=== PATIENT | male | born 2000 | race African-American/Black ===

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

== ENCOUNTER 2022-11-26 01:36 | Emergency (ER) | payer OTHER ==
[2022-11-26 01:47] VITALS: BP 150/80; PULSE 77; RESP 18; TEMP 98.3; BMI 23.6
[2022-11-26 03:40] LABS: HEMATOCRIT 48.3 % (35.4-49); HEMOGLOBIN 15.8 GM/dL (11.7-16.9); MCH 23.7 pg (25.7-33.7); MCHC 32.7 g/dl (32.0-35.9); MEAN CELL VOLUME 72.3 fl (80-96); MEAN PLT VOLUME 7.9 fl (7.5-11.1); PLATELET COUNT 194 10^3/uL (134-434); RBC 6.68 M/mm3 (4.00-5.60); RDW 15.6 % (11.9-15.9); WHITE BLOOD COUNT 7.4 K/mm3 (4.0-10.0)
[2022-11-26 04:01] LABS: POTASSIUM 3.7 mmol/L (3.5-5.1)
[2022-11-26 04:03] LABS: ALBUMIN 3.8 g/dl (3.4-5.0); BLOOD UREA NITROGEN 11.8 mg/dL (7-18)
[2022-11-26 04:06] LABS: CREATININE 1.2 mg/dL (0.55-1.3)
[2022-11-26 04:08] LABS: BILIRUBIN,TOTAL 0.4 mg/dL (0.2-1); TOT PROT 8.7 g/dl (6.4-8.2)
[2022-11-26 04:59] LABS: HIV INTERPRETATION NEGATIVE (NEGATIVE)
[2022-11-26] MEDS ORDERED: PYRIDOXINE HCL 100 MG/1 ML VIAL IM ONE (05:37)
== END 2022-11-26 05:58 | disposition home or self-care (01) ==
LOC: JER 01:36
PROC: 3E023GC Introduction of Other Therapeutic Substance into Muscle, Percutaneous Approach (ICD-10-PCS; principal; 2022-11-26)
DX: R22.33 Localized swelling, mass and lump, upper limb, bilateral (principal); R21 Rash and other nonspecific skin eruption; I73.81 Erythromelalgia; M79.671 Pain in right foot; M79.672 Pain in left foot; N49.2 Inflammatory disorders of scrotum
CPT/HCPCS: 36415; 80053; 82607; 82728; 82746; 83540; 83550; 83735; 85027; 86780; 87389; 87491; 87591; 87661; 99284-25

== ENCOUNTER 2023-10-15 17:14 | Emergency (ER) | payer OTHER ==
[2023-10-15 17:31] VITALS: BMI 20.7
[2023-10-15] MEDS ORDERED: ACETAMINOPHEN INJECTION 100 ML ONE (18:52)
[2023-10-15 19:03] LABS: BASO % 0.2 % (0-2.0); EOS % 0.2 % (0-4.5); HEMATOCRIT 43.5 % (35.4-49); HEMOGLOBIN 13.8 GM/dL (11.7-16.9); LYMPH % 15.5 % (8-40); MCH 24.1 pg (25.7-33.7); MCHC 31.8 g/dl (32.0-35.9); MEAN CELL VOLUME 75.9 fl (80-96); MEAN PLT VOLUME 8.7 fl (7.5-11.1); MONO % 10.3 % (3.8-10.2); NEUT % 73.8 % (42.8-82.8); PLATELET COUNT 230 10^3/uL (134-434); RBC 5.73 M/mm3 (4.00-5.60); RDW 15.6 % (11.9-15.9); WHITE BLOOD COUNT 3.7 K/mm3 (4.0-10.0)
[2023-10-15] MEDS: SODIUM CHLORIDE 0.9% 1000 ML INFUS.BAG IV STA (19:14)
[2023-10-15] MEDS: ACETAMINOPHEN 1000 MG/100 ML BAG IVPB ONE (19:15)
[2023-10-15 19:43] LABS: POTASSIUM 4.1 mmol/L (3.5-5.1)
[2023-10-15 19:46] LABS: CALCIUM 8.3 mg/dL (8.5-10.1)
[2023-10-15 19:47] LABS: BLOOD UREA NITROGEN 6.7 mg/dL (7-18)
[2023-10-15 19:50] LABS: CREATININE 0.9 mg/dL (0.55-1.3); PHOSPHOROUS 3.9 mg/dL (2.5-4.9)
[2023-10-15 19:51] LABS: BILIRUBIN,TOTAL 0.4 mg/dL (0.2-1); TOT PROT 8.5 g/dl (6.4-8.2)
[2023-10-15 20:29] VITALS: BP 107/69; PULSE 80; RESP 19; TEMP 99.5
== END 2023-10-15 20:42 | disposition home or self-care (01) ==
LOC: JER 17:14
PROC: 3E033NZ Introduction of Analgesics, Hypnotics, Sedatives into Peripheral Vein, Percutaneous Approach (ICD-10-PCS; principal; 2023-10-15)
DX: I95.9 Hypotension, unspecified (principal); E86.0 Dehydration; R50.9 Fever, unspecified; R53.83 Other fatigue; R42 Dizziness and giddiness; M79.10 Myalgia, unspecified site; R63.0 Anorexia; Z20.822 Contact with and (suspected) exposure to COVID-19
CPT/HCPCS: 0241U-QW; 36415; 71046-TC-FY; 80053; 84100; 85025; 93005; 93010; 93308; 99285-25; J0131

== ENCOUNTER 2023-11-28 09:44 | Inpatient (IN) | payer OTHER ==
[2023-11-28] MEDS ORDERED: ACETAMINOPHEN INJECTION 100 ML ONE (10:14)
[2023-11-28] MEDS: SODIUM CHLORIDE 0.9% 1000 ML INFUS.BAG IV STA (10:21)
[2023-11-28] MEDS: ACETAMINOPHEN 1000 MG/100 ML BAG IVPB ONE (10:21)
[2023-11-28 11:04] LABS: BASO % 0.4 % (0-2.0); HEMOGLOBIN 11.2 GM/dL (11.7-16.9); MCH 23.3 pg (25.7-33.7); MCHC 31.8 g/dl (32.0-35.9); MEAN CELL VOLUME 73.3 fl (80-96); MEAN PLT VOLUME 8.6 fl (7.5-11.1); MONO % 5.9 % (3.8-10.2); NEUT % 85.7 % (42.8-82.8); PLATELET COUNT 163 10^3/uL (134-434); RBC 4.78 M/mm3 (4.00-5.60); RDW 14.7 % (11.9-15.9)
[2023-11-28 11:08] LABS: VENOUS BASE EXCESS 0.4 mmol/L (-2-2); VENOUS PCO2 47.9 mmHg (38-52); VENOUS PH 7.358 (7.310-7.410)
[2023-11-28 11:11] LABS: INR 1.04 (0.83-1.09); PROTHROMBIN TIME (PATIENT) 11.7 SEC (9.7-13.0)
[2023-11-28 11:13] LABS: ACTIVATED PTT 34.4 SECONDS (25.2-36.5)
[2023-11-28 11:35] LABS: POTASSIUM 4.1 mmol/L (3.5-5.1)
[2023-11-28 11:39] LABS: CALCIUM 7.8 mg/dL (8.5-10.1)
[2023-11-28 11:40] LABS: ALBUMIN 2.4 g/dl (3.4-5.0); BLOOD UREA NITROGEN 11.6 mg/dL (7-18)
[2023-11-28 11:43] LABS: CREATININE 0.7 mg/dL (0.55-1.3)
[2023-11-28 11:45] LABS: BILIRUBIN,TOTAL 1.3 mg/dL (0.2-1); TOT PROT 7.3 g/dl (6.4-8.2)
[2023-11-28] MEDS ORDERED: CEFTRIAXONE 1 GM/50 ML BAG ONE (12:05)
[2023-11-28] MEDS: CEFTRIAXONE 1,000 MG in DEXTROSE 5%-WATER - 50 ML IVPB ONE (12:06)
[2023-11-28 12:08] LABS: PH,URINE 6.5 (5.0-8.0); URINE APPEARANCE CLEAR; URINE BILIRUBIN NEGATIVE (NEGATIVE); URINE COLOR YELLOW; URINE GLUCOSE (UA) NEGATIVE (NEGATIVE); URINE KETONE NEGATIVE (NEGATIVE); URINE LEUK ESTERASE NEGATIVE (NEGATIVE); URINE NITRITE NEGATIVE (NEGATIVE); URINE PROTEIN 1+ (NEGATIVE); URINE UROBILINOGEN 0.2 mg/dL (0.2-1.0)
[2023-11-28 13:09] LABS: SYPHILIS W/ RPR CONF NON-REACTIVE (NONREACTIVE)
[2023-11-28 13:13] LABS: URINE RBC 17.8 /uL (0-23.9); URINE WBC 4.3 /uL (0-25.8)
[2023-11-28 13:14] LABS: EPI CELLS 1.3 /uL (0-25.1); HYALINE CASTS 0.14 /uL (0-3.1); URINE BACTERIA 0.9 /uL (0-1359)
[2023-11-28] MEDS ORDERED: VANCOMYCIN 1 GRAM (PRE-DOCKED) 1,000 MG/250 ML BAG IVPB ONE (13:22)
[2023-11-28] MEDS: VANCOMYCIN 1,000 MG in DEXTROSE 5%-WATER - 250 ML IVPB ONE (13:23)
[2023-11-28 13:39] LABS: HIV INTERPRETATION NEGATIVE (NEGATIVE)
[2023-11-28] MEDS ORDERED: THIAMINE HCL 200 MG/2 ML VIAL ONE (15:20)
[2023-11-28] MEDS: THIAMINE HCL 200 MG/2 ML VIAL IVPB ONE (15:25)
[2023-11-28] MEDS: DEXTROSE 5%-LACTATED RINGERS 1,000 ML IV SCH (17:12)
[2023-11-28] MEDS: MELATONIN 5 MG TABLETS PO ONE (20:32)
[2023-11-28 21:27] VITALS: BMI 17.2
[2023-11-28] MEDS: guaiFENesin 200 MG/10 ML 10 ML UNIT-DOSE CUPS PO PRN (21:54)
[2023-11-29 09:12] LABS: BASO % 0.3 % (0-2.0); HEMATOCRIT 28.1 % (35.4-49); LYMPH % 15.5 % (8-40); MCH 23.4 pg (25.7-33.7); MEAN CELL VOLUME 73.1 fl (80-96); MEAN PLT VOLUME 8.1 fl (7.5-11.1); MONO % 10.7 % (3.8-10.2); NEUT % 73.5 % (42.8-82.8); PLATELET COUNT 148 10^3/uL (134-434); RBC 3.84 M/mm3 (4.00-5.60); RDW 14.8 % (11.9-15.9); WHITE BLOOD COUNT 2.4 K/mm3 (4.0-10.0)
[2023-11-29] MEDS: ENOXAPARIN NA (PORCINE) 40 MG/0.4 ML DISP.SYRIN SQ SCH (09:42)
[2023-11-29 09:46] LABS: POTASSIUM 3.4 mmol/L (3.5-5.1)
[2023-11-29 10:05] LABS: CALCIUM 7.5 mg/dL (8.5-10.1)
[2023-11-29 10:06] LABS: BLOOD UREA NITROGEN 6.8 mg/dL (7-18)
[2023-11-29 10:07] LABS: CREATININE 0.6 mg/dL (0.55-1.3)
[2023-11-29 10:09] LABS: BILIRUBIN,TOTAL 0.5 mg/dL (0.2-1)
[2023-11-29 10:12] LABS: TOT PROT 5.7 g/dl (6.4-8.2)
[2023-11-29 10:18] LABS: ALBUMIN 1.8 g/dl (3.4-5.0)
[2023-11-29] MEDS: DEXTROSE 5%-0.45% SALINE 1,000 ML IV SCH (13:13)
[2023-11-29] MEDS: POTASSIUM CHLORIDE ORAL LIQUID 20 MEQ/15 ML PO ONE (13:13)
[2023-11-29 15:15] LABS: COCAINE, UR NEGATIVE (NEGATIVE); METHADONE, UR NEGATIVE (NEGATIVE)
[2023-11-29 15:16] LABS: OPIATES, URI NEGATIVE (NEGATIVE); PHENCYCLIDINE,URINE NEGATIVE (NEGATIVE); URINE AMPHETAMINES NEGATIVE (NEGATIVE)
[2023-11-29 15:20] LABS: URINE BARBITURATES NEGATIVE (NEGATIVE); URINE BENZODIAZEPINES NEGATIVE (NEGATIVE)
[2023-11-29 17:36] LABS: RETICULOCYTES 0.28 % (0.5-1.5)
[2023-11-29] MEDS: ACETAMINOPHEN 1000 MG/100 ML BAG IVPB ONE (18:14)
[2023-11-29] MEDS: LORazepam 2 MG/ML SDV VIAL IVPUSH ONE (18:26)
[2023-11-29] MEDS: SODIUM CHLORIDE 1,000 ML IV SCH (19:24)
[2023-11-29] MEDS: THIAMINE HCL 200 MG/2 ML VIAL IVPB ONE (19:24)
[2023-11-29] MEDS: MIRTAZAPINE 15 MG TABLET (FP) PO SCH (21:32)
[2023-11-29 22:21] LABS: CALCIUM 7.3 mg/dL (8.5-10.1); MAGNESIUM 1.4 mg/dL (1.8-2.4)
[2023-11-29] MEDS: THIAMINE HCL 200 MG/2 ML VIAL IVPB SCH (22:53)
[2023-11-29] MEDS: MELATONIN 5 MG TABLETS PO ONE (22:53)
[2023-11-29] MEDS: SENNOSIDES 8.6MG TABLET (FP) PO ONE (22:54)
[2023-11-30 10:44] LABS: BASO % 1.1 % (0-2.0); HEMATOCRIT 27.7 % (35.4-49); HEMOGLOBIN 8.6 GM/dL (11.7-16.9); LYMPH % 20.4 % (8-40); MCH 23.1 pg (25.7-33.7); MCHC 31.2 g/dl (32.0-35.9); MEAN CELL VOLUME 74.2 fl (80-96); MEAN PLT VOLUME 8.6 fl (7.5-11.1); NEUT % 65.5 % (42.8-82.8); PLATELET COUNT 160 10^3/uL (134-434); RBC 3.73 M/mm3 (4.00-5.60)
[2023-11-30 10:55] LABS: WHITE BLOOD COUNT 1.9 K/mm3 (4.0-10.0)
[2023-11-30 11:06] LABS: CHLORIDE 108 mmol/L (98-107); POTASSIUM 3.4 mmol/L (3.5-5.1); SODIUM 139 mmol/L (136-145)
[2023-11-30 11:07] LABS: CALCIUM 7.7 mg/dL (8.5-10.1)
[2023-11-30 11:08] LABS: ALBUMIN 1.8 g/dl (3.4-5.0); ANION GAP 7 mmol/L (4-13); BLOOD UREA NITROGEN 6.4 mg/dL (7-18); CO2 25 mmol/L (21-32); GLUCOSE,RANDOM 73 mg/dL (74-106)
[2023-11-30 11:11] LABS: CREATININE 0.5 mg/dL (0.55-1.3); SGOT/AST 415 U/L (15-37); SGPT/ALT 217 U/L (13-61)
[2023-11-30 11:12] LABS: BILIRUBIN,TOTAL 0.6 mg/dL (0.2-1); LDH 969 U/L (87-246); TOT PROT 5.6 g/dl (6.4-8.2)
[2023-11-30 11:14] LABS: ALK PHOS 89 U/L (45-117)
[2023-11-30 11:27] LABS: IRON SERUM 47 ug/dL (50-175)
[2023-11-30 12:10] LABS: ANISOCYTOSIS 0; MACROCYTOSIS 0; PLATELET ESTIMATE ADEQUATE
[2023-11-30] MEDS: ALPRAZolam 0.25 MG TABLET PO PRN (13:09)
[2023-11-30] MEDS: POTASSIUM CHLORIDE ORAL LIQUID 20 MEQ/15 ML PO ONE (15:40)
[2023-11-30] MEDS: LORazepam 2 MG/ML SDV VIAL IVPUSH PRN (18:52)
[2023-12-01 10:48] LABS: INR 1.08 (0.83-1.09); PROTHROMBIN TIME (PATIENT) 12.4 SEC (9.7-13.0)
[2023-12-01 10:50] LABS: HEMATOCRIT 28.4 % (35.4-49); MCH 23.4 pg (25.7-33.7); MCHC 31.7 g/dl (32.0-35.9); MEAN CELL VOLUME 73.8 fl (80-96); MEAN PLT VOLUME 8.1 fl (7.5-11.1); PLATELET COUNT 161 10^3/uL (134-434); RBC 3.85 M/mm3 (4.00-5.60); RDW 15.4 % (11.9-15.9)
[2023-12-01 11:00] LABS: WHITE BLOOD COUNT 1.6 K/mm3 (4.0-10.0)
[2023-12-01 11:04] LABS: POTASSIUM 3.3 mmol/L (3.5-5.1)
[2023-12-01 11:07] LABS: ALBUMIN 1.8 g/dl (3.4-5.0); BLOOD UREA NITROGEN 6.2 mg/dL (7-18); CALCIUM 7.5 mg/dL (8.5-10.1)
[2023-12-01 11:10] LABS: CREATININE 0.6 mg/dL (0.55-1.3)
[2023-12-01 11:12] LABS: BILIRUBIN,TOTAL 0.6 mg/dL (0.2-1); TOT PROT 5.7 g/dl (6.4-8.2)
[2023-12-01] MEDS: KCL 10 MEQ IVPB 10 MEQ/100 ML INFUS.BAG IVPB SCH (11:52)
[2023-12-01 13:19] LABS: ANISOCYTOSIS 1+; MACROCYTOSIS 0; TARGET CELLS 1+
[2023-12-01] MEDS: PIPERACILLIN/TAZOB 4.5 GM 4.5 GM in DEXTROSE 5%-WATER 100 ML IVPB SCH (17:20)
[2023-12-01 21:33] VITALS: BP 116/65; PULSE 121; RESP 18; TEMP 98.6
[2023-12-14 17:11] LABS: CREATININE, UR 0.59 g/L (0.30-3.00)
== END 2023-12-01 22:00 | disposition short-term general hospital (02) | DRG 816 ==
LOC: JER 09:44 → JERBED 13:19 → J8W 19:07
PROVIDERS: ADMIT Internal Medicine; ATTEND Internal Medicine
DX: D72.819 Decreased white blood cell count, unspecified (principal); R41.82 Altered mental status, unspecified; D64.9 Anemia, unspecified; R79.89 Other specified abnormal findings of blood chemistry; L13.8 Other specified bullous disorders; K76.0 Fatty (change of) liver, not elsewhere classified; F10.10 Alcohol abuse, uncomplicated; F41.9 Anxiety disorder, unspecified; E87.6 Hypokalemia; D63.8 Anemia in other chronic diseases classified elsewhere; R50.9 Fever, unspecified
CPT/HCPCS: 0241U-QW; 36415; 70450-TC; 70551-TC; 71045-TC-FY; 71250-TC; 74176-TC; 76705-TC; 80053; 80307; 81003; 82140; 82310; 82525; 82570; 82607; 82728; 82803; 82962; 82977; 83010; 83021; 83036; 83540; 83550; 83605; 83615; 83735; 84436; 84443; 84466; 84484; 84630; 85025; 85045; 85610; 85660; 85730; 86618; 86704; 86780; 86803; 86850; 86880; 86900; 86901; 87040; 87086; 87207; 87340; 87389; 87491; 87517; 87591; 87635; 88300-TC; 93005; 93010; 93306-TC; 93308; 97116-GP; 97161-GP; 99285-25; J0131